=== PATIENT | male | born 1985 | race Caucasian/White ===

== ENCOUNTER 2016-07-19 12:53 | Emergency (ER) | payer OTHER ==
[2016-07-19] MEDS ORDERED: ACETAMINOPHEN 325 MG TABLET ONE (14:16)
[2016-07-19] MEDS ORDERED: DEXAMETHASONE SOD PHOS 10 MG/1 ML VIAL ONE (14:16)
[2016-07-19] MEDS ORDERED: IBUPROFEN 600 MG TABLET ONE (14:16)
[2016-07-19] MEDS ORDERED: PENICILLIN G BENZATHINE 1.2 MMU/2 ML SYRINGE IM ONE (14:17)
== END 2016-07-19 14:49 | disposition home or self-care (01) ==
LOC: ED 12:53
DX: J02.0 Streptococcal pharyngitis (principal)
CPT/HCPCS: 87880; 99283 ×2; 96372; J1100; A9270 ×2; J0561